=== PATIENT | female | born 1995 | race African-American/Black ===

== ENCOUNTER 2016-09-30 13:58 | Emergency (ER) | payer SELFPAY ==
[2016-09-30] MEDS ORDERED: DIPHENHYDRAMINE HCL 50 MG CAPSULE PO ONE (15:13)
[2016-09-30] MEDS ORDERED: PREDNISONE 20 MG TABLET PO ONE (15:13)
[2016-09-30] MEDS ORDERED: FAMOTIDINE 20 MG TABLET PO ONE (15:13)
--- NOTE | 2016-09-30 15:13 | ER Document Report ---
ED Allergic Reaction - General Chief Complaint: Allergic Reaction Stated Complaint: RASH/BODY PAIN, POSSIBLE ALLERGIC REACTION Time seen by provider: 15:08 Mode of Arrival: Ambulatory Information source: Patient Notes: 21-year-old female presents to ED for allergic reaction to medication she took at the doctor's office on Monday. She states she is unsure of exactly what she took. She states she was started on Flagyl for 5 days for the bacterial vaginosis. She states that she was being treated for bacterial vaginosis and then they called her in to take 2 pills for Chlamydia. She states she took these 2 days ago and her hands have been swelling for the last 2 days and she had hives to arms and legs. TRAVEL OUTSIDE OF THE [place] IN LAST 30 DAYS: No - HPI Onset: Other - 2 days Onset/Duration: Gradual Quality of pain: Other - Itching Severity: None Pain Level: Denies Skin rash / itching: Extremities, "Redness", "Hives" Swelling: Hands - Hands are swollen legs and arms have hives Associated symptoms: None Similar symptoms previously: No Recently seen / treated by doctor: Yes - Related Data Allergies/Adverse Reactions: azithromycin [From Zithromax] Allergy (Verified 09/30/16 15:22) Erythema Multiforme Past Medical History - General Information source: Patient - Social History Smoking Status: Never Smoker Cigarette use (# per day): No Chew tobacco use (# tins/day): No Smoking Education Provided: No Frequency of alcohol use: Occasional Drug Abuse: None Occupation: [employer] with: Alone Family History: Reviewed & Not Pertinent, CAD, CVA, DM, Hyperlipidemia, Hypertension, Malignancy, Thyroid Disfunction Patient has suicidal ideation: No Patient has homicidal ideation: No - Past Medical History Cardiac Medical History: Reports: None Pulmonary Medical History: Reports: None EENT Medical History: Reports: None Neurological Medical History: Reports: None Endocrine Medical History: Reports: None Renal/ Medical History: Reports: None Malignancy Medical History: Reports: None GI Medical History: Reports: None Musculoskeltal Medical History: 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, Reports Hx Musculoskeletal Deformity, Reports Hx Musculoskeletal Trauma Skin Medical History: Reports Hx Eczema Psychiatric Medical History: Reports: None Traumatic Medical History: Reports: Hx Fractures - fingers Past Surgical History: Reports: Hx Gynecologic Surgery - Implanon - Immunizations Immunizations up to date: Yes Hx Diphtheria, Pertussis, Tetanus Vaccination: No Review of Systems - Review of Systems Constitutional: No symptoms reported EENT: No symptoms reported Cardiovascular: No symptoms reported Respiratory: No symptoms reported Gastrointestinal: No symptoms reported Genitourinary: No symptoms reported Female Genitourinary: No symptoms reported Musculoskeletal: No symptoms reported Skin: Other - Swelling to hands hives to arms and legs Hematologic/Lymphatic: No symptoms reported Neurological/Psychological: No symptoms reported -: Yes All other systems reviewed and negative Physical Exam - Vital signs Vitals: Temp Pulse Resp BP Pulse Ox 98.5 F 110 H 16 122/76 100 09/30/16 14:10 09/30/16 14:10 09/30/16 14:10 09/30/16 14:10 09/30/16 14:10 Interpretation: Normal - General General appearance: Appears well, Alert - HEENT Head: Normocephalic, Atraumatic Eyes: Normal Pupils: PERRL - Respiratory Respiratory status: No respiratory distress Chest status: Nontender Breath sounds: Normal Chest palpation: Normal - Cardiovascular Rhythm: Regular Heart sounds: Normal auscultation Murmur: No - Abdominal Inspection: Normal Distension: No distension Bowel sounds: Normal Tenderness: Nontender Organomegaly: No organomegaly - Back Back: Normal, Nontender - Extremities General upper extremity: Nontender, Normal color, Normal ROM, Normal temperature General lower extremity: Nontender, Normal color, Normal ROM, Normal temperature , Normal weight bearing. No: Bernardo's sign Forearm: Other - Hives Hand: Swelling - Redness swelling hives Thigh: Other - Hives Calf: Other - Hives Ankle: Normal Foot: Normal - Neurological Neuro grossly intact: Yes Cognition: Normal Orientation: AAOx4 Frantz Coma Scale Eye Opening: Spontaneous Frantz Coma Scale Verbal: Oriented [place] Coma Scale Motor: Obeys Commands [place] Coma Scale Total: 15 Speech: Normal Motor strength normal: LUE, RUE, LLE, RLE Sensory: Normal - Psychological Associated symptoms: Normal affect, Normal mood - Skin Skin Temperature: Warm Skin Moisture: Dry Skin Color: Normal Location of irregularity: Extremities Character of irregularity: Erythematous, Urticarial Irregularity with: Swelling - Hands and feet Course - Re-evaluation Re-evalutation: 09/30/16 15:19 Patient was treated for bacterial vaginosis with Flagyl last week and he [facility] and got 2 large pills for Chlamydia. Within 2 days she started having swelling to her hands and feet and hives. I spoke with Dr. Juarez today and she stated yes she did get azithromycin and in these to be notated that she is allergic to azithromycin. We'll treat patient with prednisone and Pepcid and Benadryl and discharged home with a small prescription of prednisone. Patient to follow-up with her primary doctor. - Vital Signs Vital signs: Temp Pulse Resp BP Pulse Ox 98.5 F 110 H 16 122/76 100 09/30/16 14:10 09/30/16 14:10 09/30/16 14:10 09/30/16 14:10 09/30/16 14:10 Discharge - Discharge Clinical Impression: Allergic reaction caused by a drug Qualifiers: Encounter type: initial encounter Qualified Code(s): T78.40XA - Allergy, unspecified, initial encounter Condition: Stable Disposition: HOME, SELF-CARE Instructions: Family Physicians / Practices Additional Instructions: ACUTE ALLERGIC REACTION: Your symptoms are due to an allergic reaction. Allergy can cause hives, swelling of the hands, feet, and face, hoarseness, and difficulty swallowing or breathing. It may be due to exposure to medication, animal dander, foods, infection, or insect bites. Medication is a common cause, even when prior use of this same medication caused no problems. Acute treatment may include adrenalin and antihistamines. Usually, the specific allergic agent can't be identified unless repeated episodes occur. Home treatment includes the following: (1) Stop any suspicious medications. This will be discussed with you. (2) Oral antihistamines for the next four to five days. Example, diphenhydramine (Benadryl) every four hours. (3) You may also use cimetidine (Tagamet), ranitidine (Zantac), or famotidine ( Pepcid) every four hours if diphenhydramine is not controlling itching and hives. (4) Avoid aspirin until the hives completely disappear. (5) Avoid hot baths or showers until the hives are completely gone. Call the doctor if faintness, difficulty swallowing, tightness in the chest , or wheezing occurs. STEROID MEDICATION: You have been given a medicine of the cortisone/steroid class. This medication is used to control inflammation or allergy. It is usually only given for a short period of time, until the acute process subsides. There are usually no side effects from short-term use of cortisone-like medications. Some persons feel an increased sense of well-being and are not sleepy at bedtime. Long-term use of cortisone medications is best avoided, unless required for a severe condition. If your condition does not remit, or relapses after the course of corticosteroid medication, you should consult your physician. ACID-SUPPRESSING MEDICATION: You have a prescription for medicine which reduces the stomach's secretion of acid. Examples include Zantac, Tagament, and Pepcid. These drugs are often used to allow healing of ulcers or esophagitis. They may be needed to prevent recurrence of ulcers in some patients, or to prevent damage from acid reflux in the esophagus. Take all medication as prescribed, even after the pain is gone. Regular antacids may be added as needed if you have symptoms while taking this medicine. These medications sometimes are prescribed for allergic reactions because they have anti-histaminic effects and relieve the rash and itching of the reaction. There are usually no side effects from this medication. But, in rare cases and particularly in the elderly, serious problems can occur. Contact your doctor if there is fever, rash, hallucinations, confusion, or unusual bruising. Contact your doctor at once if you develop lightheadedness, black or bloody stool, or bloody vomitus. USE OF DIPHENHYDRAMINE: The use of diphenhydramine (Benadryl) has been recommended to control allergic symptoms. The 25 mg strength is available over- the-counter, as well as the elixir. This antihistamine is used for many symptoms. It's useful for itching, watering eyes and nose, allergic swelling, hives, and insect stings. The medication can be repeated four times daily. Age Elixir (12.5 mg/tsp) 25 mg pill 2-3 yr 1/2 tsp 4-8 yr 1 tsp 9-14 yr 2 tsp one tab adult 1-2 tabs Antihistamines may cause drowsiness, especially with the first dose. Do not operate machinery or drive while under the effects of the medication. Do not combine the medication with alcohol, or with any other medication without talking to your doctor. FOLLOW-UP CARE: If you have been referred to a physician for follow-up care, call the physician s office for an appointment as you were instructed or within the next two days. If you experience worsening or a significant change in your symptoms, notify the physician immediately or return to the Emergency Department at any time for re-evaluation. Prescriptions: Famotidine [Pepcid 20 mg Tablet] 20 mg PO BID #12 tablet Prednisone [Deltasone 20 mg Tablet] 3 tab PO DAILY 5 Days Forms: Return to Work
[2016-09-30 15:27] VITALS: BP 122/76
== END 2016-09-30 15:45 | disposition home or self-care (01) ==
LOC: ER 13:58
DX: L50.0 Allergic urticaria (principal); T36.3X5A Adverse effect of macrolides, initial encounter; M79.1 Myalgia; X58.XXXA Exposure to other specified factors, initial encounter; Z88.3 Allergy status to other anti-infective agents
CPT/HCPCS: 99283; J7512

== ENCOUNTER 2016-11-30 17:15 | Emergency (ER) | payer SELFPAY ==
--- NOTE | 2016-11-30 20:12 | ER Document Report ---
ED General - General TRAVEL OUTSIDE OF THE [place] IN LAST 30 DAYS: No - HPI Associated symptoms: Other - see above <LARA LOPEZ - Last Filed: 11/30/16 21:09> <JEB DECKER - Last Filed: 12/01/16 03:59> - General Chief Complaint: Headache Stated Complaint: CHEST PAINS,HEADACHE,NAUSEA Time Seen by Provider: 11/30/16 19:54 Notes: Patient is a 21 year old female who presents to to the ED with complaints of intermittent chest pressure and pain "for a while" that has now became constant. Patient states she has also had a severe headache for the past 2-3 days with associated blurred vision. Patient states she has a history of headaches but never this bad. Patient took Excedrin earlier. Patient denies any abdominal pain. Patient states she has not had adequate oral intake lately. No other concerns or complaints at this time. 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 denies: Abdominal pain Genitourinary: No symptoms reported Female Genitourinary: No symptoms reported Musculoskeletal: No symptoms reported Skin: No symptoms reported Hematologic/Lymphatic: No symptoms reported Neurological/Psychological: See HPI, Headaches <LARA LOPEZ - Last Filed: 11/30/16 21:09> Physical Exam - General General appearance: Appears well, Alert - HEENT Head: Normocephalic, Atraumatic Eyes: Normal Extraocular movements intact: Yes Pupils: PERRL - Respiratory Respiratory status: No respiratory distress Chest status: Tender - chest wall tenderness to palpation Breath sounds: Normal Chest palpation: Normal - Cardiovascular Rhythm: Regular Heart sounds: Normal auscultation Murmur: No - Abdominal Inspection: Normal Distension: No distension - Back Back: Normal - Extremities General upper extremity: Normal inspection, Normal ROM General lower extremity: Normal inspection, Normal ROM - Neurological Neuro grossly intact: Yes Cognition: Normal Orientation: AAOx4 Frantz Coma Scale Eye Opening: Spontaneous Frantz Coma Scale Verbal: Oriented [place] Coma Scale Motor: Obeys Commands [place] Coma Scale Total: 15 Speech: Normal - Psychological Associated symptoms: Normal affect, Normal mood - Skin Skin Temperature: Warm Skin Moisture: Dry Skin Color: Normal <LARA LOPEZ - Last Filed: 11/30/16 21:09> Course - Laboratory Result Diagrams: 11/30/16 20:40 11/30/16 20:40 <LARA LOPEZ - Last Filed: 11/30/16 21:09> - Laboratory Result Diagrams: 11/30/16 20:40 11/30/16 20:40 - Diagnostic Test Radiology reviewed: Reports reviewed - EKG Interpretation by Al EKG shows normal: Sinus rhythm Rate: Normal Rhythm: NSR <JEB DECKER - Last Filed: 12/01/16 03:59> - Re-evaluation Re-evalutation: 11/30/16 21:09 Patient rechecked. Patient states she is feeling a little better. (LARA LOPEZ) Patient is feeling better and would like to go home. No further headache. No further chest pain. No acute findings on blood work, EKG, chest x-ray. Patient is encouraged to stay hydrated at home. Understands and agrees with plan. Stable for discharge. (JEB DECKER) - Vital Signs Vital signs: Temp Pulse Resp BP Pulse Ox 98.5 F 77 18 117/65 99 11/30/16 22:54 11/30/16 22:54 11/30/16 22:54 11/30/16 22:54 11/30/16 22:54 Discharge <LARA LOPEZ - Last Filed: 11/30/16 21:09> <JEB DECKER - Last Filed: 12/01/16 03:59> - Discharge Clinical Impression: Chest wall pain Headache Qualifiers: Headache type: unspecified Headache chronicity pattern: acute headache Intractability: not intractable Qualified Code(s): R51 - Headache Condition: Stable Disposition: HOME, SELF-CARE Instructions: Headache ([facility]), Chest Wall Pain ([facility]), Family Physicians / Practices Prescriptions: Metoclopramide HCl [Reglan 10 mg Tablet] 1 tab PO TIDP PRN #25 tablet PRN Reason: Forms: Return to Work Scribe Attestation: 12/01/16 03:59 I personally performed the services described in the documentation, reviewed and edited the documentation which was dictated to the scribe in my presence, and it accurately records my words and actions. (JEB DECKER) Scribe Documentation - Scribe Written by Tierra:: tierra Saleh, [id number] acting as scribe for :: Tere <LARA LOPEZ - Last Filed: 11/30/16 21:09>
[2016-11-30] MEDS ORDERED: NORMAL SALINE 1000 ML 1,000 ML IV ONE (20:13)
[2016-11-30] MEDS ORDERED: ONDANSETRON HCL INJ/PF 4 MG/2 ML SDV IV ONE (20:13)
[2016-11-30] MEDS ORDERED: PROCHLORPERAZINE EDISYLATE INJ 10 MG/2 ML VIAL IV ONE (20:13)
[2016-11-30] MEDS ORDERED: DIPHENHYDRAMINE HCL 50 MG/ML VIAL IV ONE (20:14)
[2016-11-30 20:55] LABS: ABSOLUTE EOSINOPHILS # (AUTO) 0.1 10^3/uL (0.0-0.6); ABSOLUTE LYMPHOCYTES (AUTO) 1.9 10^3/uL (0.5-4.7); ABSOLUTE NEUT (AUTO) 6.2 10^3/uL (1.7-8.2); BASOPHILS % (AUTO) 0.2 % (0-2); EOSINOPHILS % (AUTO) 0.6 % (0-6); HEMATOCRIT 39.1 % (36.0-47.0); HEMOGLOBIN 12.6 g/dL (12.0-15.5); HGB HCT DIFFERENCE -1.3; LYMPHOCYTES % (AUTO) 21.1 % (13-45); MEAN CORPUSCULAR HEMOGLOBIN 29.3 pg (27.0-33.4); MEAN CORPUSCULAR HGB CONC 32.1 g/dL (32.0-36.0); MEAN CORPUSCULAR VOLUME 91 fl (80-97); MONOCYTES % (AUTO) 10.5 % (3-13); RED BLOOD COUNT 4.29 10^6/uL (3.72-5.28); RED CELL DISTRIBUTION WIDTH 12.5 % (11.5-14.0); SEGMENTED NEUTROPHILS % (AUTO) 67.6 % (42-78); WHITE BLOOD COUNT 9.1 10^3/uL (4.0-10.5)
--- NOTE | 2016-11-30 21:06 | RADIOLOGY REPORT (SQ) ---
EXAM DESCRIPTION: CHEST PA/LAT COMPLETED DATE/TIME: 11/30/2016 8:27 pm REASON FOR STUDY: CP COMPARISON: 01/21/2016 EXAM PARAMETERS: NUMBER OF VIEWS: two views TECHNIQUE: Digital Frontal and Lateral radiographic views of the chest acquired. RADIATION DOSE: NA LIMITATIONS: none FINDINGS: LUNGS AND PLEURA: No opacities, masses or pneumothorax. No pleural effusion. MEDIASTINUM AND HILAR STRUCTURES: No masses or contour abnormalities. HEART AND VASCULAR STRUCTURES: Heart normal size. No evidence for failure. BONES: No acute findings. HARDWARE: None in the chest. OTHER: No other significant finding. IMPRESSION: NO SIGNIFICANT RADIOGRAPHIC FINDING IN THE CHEST. TECHNICAL DOCUMENTATION: JOB ID: [id number] [employer]- All Rights Reserved
[2016-11-30 21:13] LABS: ANION GAP 11 (5-19); BLOOD UREA NITROGEN 11 mg/dL (7-20); CALCIUM 9.5 mg/dL (8.4-10.2); CARBON DIOXIDE 23 mmol/L (22-30); CHLORIDE 106 mmol/L (98-107); GLUCOSE 77 mg/dL (75-110); POTASSIUM 4.1 mmol/L (3.6-5.0); SODIUM 140.3 mmol/L (137-145)
[2016-11-30 22:55] VITALS: BP 117/65
--- NOTE | 2016-12-01 08:06 | EKG REPORT ---
SEVERITY:- NORMAL ECG - SINUS RHYTHM : Confirmed by: Brandyn Nova MD 01-Dec-2016 08:04:32
== END 2016-11-30 22:55 | disposition home or self-care (01) ==
LOC: ER 17:15
DX: R51 Headache (principal); R07.89 Other chest pain; R11.0 Nausea; Z88.3 Allergy status to other anti-infective agents
CPT/HCPCS: 93005; 99284; 96361; 96374; 96375; 36415; 84703; 85025; 80048; 71020; 93010; J1200; J0780; J2405; J7030

== ENCOUNTER 2018-03-13 11:18 | Emergency (ER) | payer SELFPAY ==
--- NOTE | 2018-03-13 11:42 | ER Document Report ---
ED Medical Screen (RME) - General Chief Complaint: Chest Pain Stated Complaint: CHEST PAINS, SHORTNESS OF BREATH, DIZZY Time Seen by Provider: 03/13/18 11:34 Mode of Arrival: Ambulatory Information source: Patient Notes: 23-year-old female presents emergency department with complaints of lightheadedness, chest pain, shortness of breath over the last 4 days. Patient states that the chest pain as a sharp and stabbing sensation located in the left chest. She denies any radiation of the pain. She denies any alleviating or exacerbating factors. She denies any fever, chills, rhinorrhea, sore throat , cough. Patient states that the pain is constant in nature. She states that she did drive down to [place] and back at the beginning of January. Patient states that she is also on control. She denies any history of DVT or PE, calf pain, calf swelling, history of recent malignancy, recent surgery. Patient does not smoke. She denies a history of hypertension, hyperlipidemia, diabetes, coronary artery disease. Patient states that she does have a family history of coronary artery disease. I have greeted and performed a rapid initial assessment of this patient. A comprehensive ED assessment and evaluation of the patient, analysis of test results and completion of the medical decision making process will be conducted by additional ED providers. PHYSICAL EXAMINATION: GENERAL: Well-appearing, well-nourished and in no acute distress. HEAD: Atraumatic, normocephalic. EYES: Pupils equal round extraocular movements intact, conjunctiva are normal. ENT: Nares patent NECK: Normal range of motion LUNGS: No respiratory distress Musculoskeletal: Normal range of motion NEUROLOGICAL: Normal speech, normal gait. PSYCH: Normal mood, normal affect. SKIN: Warm, Dry, normal turgor, no rashes or lesions noted. TRAVEL OUTSIDE OF THE [place] 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, Reports Hx Musculoskeletal Deformity, Reports Hx Musculoskeletal Trauma Skin Medical History: Reports Hx Eczema Traumatic Medical History: Reports: Hx Fractures - fingers Past Surgical History: Reports: Hx Gynecologic Surgery - Implanon - Immunizations Immunizations up to date: Yes Hx Diphtheria, Pertussis, Tetanus Vaccination: No Physical Exam - Vital signs Vitals: Temp Pulse Resp BP Pulse Ox 98.6 F 104 H 16 129/76 H 99 03/13/18 11:31 03/13/18 11:31 03/13/18 11:31 03/13/18 11:31 03/13/18 11:31 Course - Vital Signs Vital signs: Temp Pulse Resp BP Pulse Ox 98.6 F 104 H 16 129/76 H 99 03/13/18 11:31 03/13/18 11:31 03/13/18 11:31 03/13/18 11:31 03/13/18 11:31
--- NOTE | 2018-03-13 12:06 | ER Document Report ---
ED General - General Chief Complaint: Chest Pain Stated Complaint: CHEST PAINS, SHORTNESS OF BREATH, DIZZY Time Seen by Provider: 03/13/18 11:34 Mode of Arrival: Ambulatory Notes: Patient is a 23-year-old female that presents to the emergency department for chief complaint of chest pain and shortness of breath. Patient states she has been having on and off sharp left-sided chest pains for the past few months, but over the last few days has been more constant, nothing seems to make it better or worse. She has had some associated shortness of breath and lightheadedness but no syncopal episodes. She denies any worsening of the pain with exertion. She currently describes the pain as sharp, left-sided, and a 3 out of 10, but is painful to palpate over that area. She denies noting any recent fevers, chills, night sweats, cough, nausea, vomiting or abdominal pain. She does not believe that she is . Denies family history of early coronary disease. Denies having any leg swelling or calf pain. She does report she drove to [place] and back in the beginning of January, but the symptoms started before that. Past Medical History: Denies chronic medical conditions Past Surgical History: Denies surgical history Social History: Admits to rare alcohol use, denies tobacco or illicit drug use Family History: Reviewed and noncontributory for presenting illness Allergies: Reviewed, see documented allergy list. REVIEW OF SYSTEMS: Unless otherwise stated in this report the patient's positive and negative responses for review of systems for constitutional, eyes, ENT, cardiovascular, respiratory, gastrointestinal, neurological, genitourinary, musculoskeletal, and integumentary systems and related systems to the presenting problem are either as stated in the HPI or were not pertinent or were negative for the symptoms and/or complaints related to the presenting medical problem. PHYSICAL EXAMINATION: Vital signs reviewed, nursing noted reviewed. GENERAL: Well-appearing, well-nourished and in no acute distress. HEAD: Atraumatic, normocephalic. EYES: Eyes appear normal, extraocular movements intact, sclera anicteric, conjunctiva are normal. ENT: nares patent, oropharynx clear without exudates. Moist mucous membranes. NECK: Normal range of motion, supple without lymphadenopathy LUNGS: Breath sounds clear to auscultation bilaterally and equal. No wheezes rales or rhonchi. Mild left-sided reproducible chest wall tenderness to palpation HEART: Heart rate initially tachycardic, normal rhythm, no audible murmurs, on repeat evaluation, heart rate was normal. ABDOMEN: Soft, nontender, normoactive bowel sounds. No rebound, guarding, or rigidity. No masses appreciated. EXTREMITIES: Nontender, good range of motion, no pitting or edema. NEUROLOGICAL: No focal neurological deficits. Moves all extremities spontaneously Motor and sensory grossly intact on exam. PSYCH: Normal mood, normal affect. SKIN: Warm, Dry, normal turgor, no rashes or lesions noted on exposed skin TRAVEL OUTSIDE OF THE [place] IN LAST 30 DAYS: No - Related Data Allergies/Adverse Reactions: azithromycin [From Zithromax] Allergy (Verified 09/30/16 15:22) Erythema Multiforme Past Medical History - General Information source: Patient - Social History Smoking Status: Never Smoker Chew tobacco use (# tins/day): No Frequency of alcohol use: Occasional Drug Abuse: None Family History: Reviewed & Not Pertinent, CAD, CVA, DM, Hyperlipidemia, Hypertension, Malignancy, Thyroid Disfunction Patient has suicidal ideation: No Patient has homicidal ideation: No Renal/ Medical History: Denies: Hx Peritoneal Dialysis Musculoskeletal Medical History: 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, Reports Hx Musculoskeletal Deformity, Reports Hx Musculoskeletal Trauma Skin Medical History: Reports Hx Eczema Traumatic Medical History: Reports: Hx Fractures - fingers Past Surgical History: Reports: Hx Gynecologic Surgery - Implanon - Immunizations Immunizations up to date: Yes Hx Diphtheria, Pertussis, Tetanus Vaccination: No Physical Exam - Vital signs Vitals: Temp Pulse Resp BP Pulse Ox 98.6 F 104 H 16 129/76 H 99 03/13/18 11:31 03/13/18 11:31 03/13/18 11:31 03/13/18 11:31 03/13/18 11:31 Course - Re-evaluation Re-evalutation: Presentation of chest pain in an otherwise well appearing patient. Low clinical suspicion for ACS given clinical history, exam, EKG without ST elevations or depressions, and negative initial troponin. HEART score less than or equal to 3. PE also seems unlikely given clinical history, will obtain d-dimer, if positive will obtain CT imaging of the chest, if negative, patient will effectively be ruled out by clinical history, negative d-dimer, cannot use PERC criteria given tachycardia on presentation. CXR without evidence of pneumothorax or pneumonia. No widened mediastinum. Aortic dissection also seems unlikely given history, symmetric pulses, CXR, and vitals. HEART Score: History 0 ECG 0 Age 0 Risk Factors 0 Troponin 0 Total: 0 Chest pain in a patient without evidence of cardiac or other serious etiology on workup today. I discussed with patient that, based on their age, risk factors and emergency department testing today, the likelihood that their symptoms are related to a heart attack is very low (estimated risk of heart attack or over the next 30 days of less than 1%). The patient demonstrates decision making capacity and has verbalized an understanding of these risks to me. Based on this, the patient has chosen to follow-up as an outpatient. Usual chest pain return precautions reviewed. The patient states understanding and agreement with this plan. Patient's blood work was unremarkable, d-dimer negative, hCG negative, patient did receive GI cocktail, with some relief of her pain, etiology likely GI, versus costochondritis that she did have reproducible chest wall tenderness Advised the patient to follow-up with primary care physician, we will give her a prescription for Pepcid, patient agreeable to plan of care Laboratory 03/13/18 03/13/18 03/13/18 11:55 11:55 11:55 WBC 7.4 RBC 4.11 Hgb 12.2 Hct 36.7 MCV 89 MCH 29.7 MCHC 33.3 RDW 13.0 Plt Count 331 Seg Neutrophils % 76.1 Lymphocytes % 16.2 Monocytes % 7.1 Eosinophils % 0.3 Basophils % 0.3 Absolute Neutrophils 5.7 Absolute Lymphocytes 1.2 Absolute Monocytes 0.5 Absolute Eosinophils 0.0 Absolute Basophils 0.0 D-Dimer Sodium 140.1 Potassium 4.1 Chloride 105 Carbon Dioxide 25 Anion Gap 10 BUN 10 Creatinine 0.79 Est GFR ( Amer) > 60 Est GFR (Non-Af Amer) > 60 Glucose 103 Calcium 9.8 Total Bilirubin 0.9 Direct Bilirubin 0.2 Neonat Total Bilirubin Not Reportable Neonat Direct Bilirubin Not Reportable Neonat Indirect Bili Not Reportable AST 21 ALT 20 Alkaline Phosphatase 73 Troponin I < 0.012 Total Protein 7.4 Albumin 4.4 Urine Color Urine Appearance Urine pH Ur Specific [place] Urine Protein Urine Glucose (UA) Urine Ketones Urine Blood Urine Nitrite Urine Bilirubin Urine Urobilinogen Ur Leukocyte Esterase Urine WBC (Auto) Urine RBC (Auto) Urine Bacteria (Auto) Squamous Epi Cells Auto Urine Mucus (Auto) Urine Ascorbic Acid Urine HCG, Qual 03/13/18 03/13/18 11:55 12:31 WBC RBC Hgb Hct MCV MCH MCHC RDW Plt Count Seg Neutrophils % Lymphocytes % Monocytes % Eosinophils % Basophils % Absolute Neutrophils Absolute Lymphocytes Absolute Monocytes Absolute Eosinophils Absolute Basophils D-Dimer < 0.27 Sodium Potassium Chloride Carbon Dioxide Anion Gap BUN Creatinine Est GFR ( Amer) Est GFR (Non-Af Amer) Glucose Calcium Total Bilirubin Direct Bilirubin Neonat Total Bilirubin Neonat Direct Bilirubin Neonat Indirect Bili AST ALT Alkaline Phosphatase Troponin I Total Protein Albumin Urine Color YELLOW Urine Appearance SLIGHTLY-CLOUDY Urine pH 6.0 Ur Specific [place] 1.016 Urine Protein NEGATIVE Urine Glucose (UA) NEGATIVE Urine Ketones NEGATIVE Urine Blood NEGATIVE Urine Nitrite NEGATIVE Urine Bilirubin NEGATIVE Urine Urobilinogen 2.0 H Ur Leukocyte Esterase NEGATIVE Urine WBC (Auto) 0 Urine RBC (Auto) 1 Urine Bacteria (Auto) 1+ Squamous Epi Cells Auto 8 Urine Mucus (Auto) RARE Urine Ascorbic Acid NEGATIVE Urine HCG, Qual NEGATIVE Chest X-Ray 03/13/18 11:38 IMPRESSION: NO ACUTE RADIOGRAPHIC FINDING IN THE CHEST. - Vital Signs Vital signs: Temp Pulse Resp BP Pulse Ox 98.6 F 104 H 16 129/76 H 99 03/13/18 11:31 03/13/18 11:31 03/13/18 11:31 03/13/18 11:31 03/13/18 11:31 - Laboratory Result Diagrams: 03/13/18 11:55 03/13/18 11:55 Laboratory results interpreted by me: 03/13/18 11:55 Urine Urobilinogen 2.0 H - EKG Interpretation by Me Additional EKG results interpreted by me: EKG demonstrates sinus rhythm with a ventricular rate of 93 bpm, normal axis, normal intervals, there is no evidence of acute ischemia on this EKG. This is compared with prior EKG from 11/30/2016, without significant change. Discharge - Discharge Clinical Impression: Chest pain Qualifiers: Chest pain type: unspecified Qualified Code(s): R07.9 - Chest pain, unspecified Condition: Stable Disposition: HOME, SELF-CARE Instructions: Chest Wall Pain ([facility]), Chest Pain of Unclear Cause ([facility]), Antacid Therapy ([facility]) Additional Instructions: Please return to the emergency department if you have any worsening, or concern of your symptoms. Please return to the emergency department if you develop chest pain, difficulty breathing, severe abdominal pain, or ongoing vomiting. Please follow-up with your primary care physician in 2-3 days and any other recommended physicians. If prescribed, take all medications as directed. If you have any questions or concerns do not hesitate to return the emergency department for evaluation. Prescriptions: Famotidine [Pepcid 20 mg Tablet] 20 mg PO BID #30 tablet Referrals: REHANA BRYAN MD [ACTIVE STAFF] - Follow up in 3-5 days (GI)
[2018-03-13 12:22] LABS: ABSOLUTE LYMPHOCYTES (AUTO) 1.2 10^3/uL (0.5-4.7); ABSOLUTE MONOCYTES (AUTO) 0.5 10^3/uL (0.1-1.4); ABSOLUTE NEUT (AUTO) 5.7 10^3/uL (1.7-8.2); BASOPHILS % (AUTO) 0.3 % (0-2); EOSINOPHILS % (AUTO) 0.3 % (0-6); HEMATOCRIT 36.7 % (36.0-47.0); HEMOGLOBIN 12.2 g/dL (12.0-15.5); LYMPHOCYTES % (AUTO) 16.2 % (13-45); MEAN CORPUSCULAR HEMOGLOBIN 29.7 pg (27.0-33.4); MEAN CORPUSCULAR HGB CONC 33.3 g/dL (32.0-36.0); MEAN CORPUSCULAR VOLUME 89 fl (80-97); MONOCYTES % (AUTO) 7.1 % (3-13); PLATELET COUNT 331 10^3/uL (150-450); RED BLOOD COUNT 4.11 10^6/uL (3.72-5.28); SEGMENTED NEUTROPHILS % (AUTO) 76.1 % (42-78); TOTAL CELLS COUNTED % (AUTO) 100 %; WHITE BLOOD COUNT 7.4 10^3/uL (4.0-10.5)
[2018-03-13] MEDS ORDERED: MAG HYDROX/AL HYDROX/SIMETH SUSP 30 ML UDCUP PO ONE (12:27)
[2018-03-13] MEDS ORDERED: LIDOCAINE 2% VISCOUS SOLN 20 ML UDCUP PO ONE (12:27)
[2018-03-13] MEDS ORDERED: METOCLOPRAMIDE HCL ORAL SOLN 10 MG/10 ML UDCUP PO ONE (12:27)
[2018-03-13 12:32] LABS: APPEARANCE,URINE SLIGHTLY-CLOUDY; BILIRUBIN,URINE NEGATIVE (NEGATIVE); COLOR,URINE YELLOW; GLUCOSE, URINE NEGATIVE (NEGATIVE); KETONES,URINE NEGATIVE (NEGATIVE); LEUKOCYTE ESTERASE,URINE NEGATIVE (NEGATIVE); NITRITE,URINE NEGATIVE (NEGATIVE); PROTEIN,URINE NEGATIVE (NEGATIVE); URINE SPECIFIC GRAVITY 1.016
[2018-03-13 12:53] LABS: ALANINE AMINOTRANSFERASE 20 U/L (9-52); ALBUMIN 4.4 g/dL (3.5-5.0); ALKALINE PHOSPHATASE 73 U/L (38-126); ANION GAP 10 (5-19); ASPARTATE AMINO TRANSFERASE 21 U/L (14-36); BILIRUBIN,DIRECT 0.2 mg/dL (0.0-0.4); BILIRUBIN,TOTAL 0.9 mg/dL (0.2-1.3); BLOOD UREA NITROGEN 10 mg/dL (7-20); CALCIUM 9.8 mg/dL (8.4-10.2); CARBON DIOXIDE 25 mmol/L (22-30); CHLORIDE 105 mmol/L (98-107); GLUCOSE 103 mg/dL (75-110); POTASSIUM 4.1 mmol/L (3.6-5.0); SODIUM 140.1 mmol/L (137-145); TOTAL PROTEIN 7.4 g/dL (6.3-8.2)
--- NOTE | 2018-03-13 13:06 | EKG REPORT ---
SEVERITY:- NORMAL ECG - SINUS RHYTHM : Confirmed by: Brandyn Nova MD 13-Mar-2018 13:05:44
--- NOTE | 2018-03-13 13:10 | RADIOLOGY REPORT (SQ) ---
EXAM DESCRIPTION: CHEST SINGLE VIEW COMPLETED DATE/TIME: 03/13/2018 12:56 pm REASON FOR STUDY: chest pain COMPARISON: Two-view chest 04/13/2014, 01/21/2016, 11/30/2016 EXAM PARAMETERS: NUMBER OF VIEWS: One view. TECHNIQUE: Single frontal radiographic view of the chest acquired. RADIATION DOSE: NA LIMITATIONS: None. FINDINGS: LUNGS AND PLEURA: No opacities, masses or pneumothorax. No pleural effusion. MEDIASTINUM AND HILAR STRUCTURES: No masses. Contour normal. HEART AND VASCULAR STRUCTURES: Heart normal in size. Normal vasculature. BONES: No acute findings. HARDWARE: None in the chest. OTHER: No other significant finding. IMPRESSION: NO ACUTE RADIOGRAPHIC FINDING IN THE CHEST. TECHNICAL DOCUMENTATION: JOB ID: [id number] [employer]- All Rights Reserved Reading location - IP/workstation name: [email or web address]
[2018-03-13 14:46] VITALS: BP 106/72
== END 2018-03-13 14:51 | disposition home or self-care (01) ==
LOC: ER 11:18
DX: R07.9 Chest pain, unspecified (principal); R06.02 Shortness of breath; R42 Dizziness and giddiness; R00.0 Tachycardia, unspecified; Z88.1 Allergy status to other antibiotic agents; Z82.49 Family history of ischemic heart disease and other diseases of the circulatory system
CPT/HCPCS: 93005; 99285; 36415; 85025; 81025; 80053; 81001; 84484; 85379; 71045; 93010; J3490

== ENCOUNTER 2018-11-09 09:44 | Emergency (ER) | payer SELFPAY ==
[2018-11-09] MEDS ORDERED: KETOROLAC TROMETHAMINE INJ/PF 30 MG/1 ML SDV IV ONE (10:47)
[2018-11-09] MEDS ORDERED: PROCHLORPERAZINE EDISYLATE INJ 10 MG/2 ML VIAL IV ONE (10:47)
[2018-11-09] MEDS ORDERED: DIPHENHYDRAMINE HCL 50 MG/ML VIAL IV ONE (10:47)
[2018-11-09] MEDS ORDERED: NORMAL SALINE 1000 ML 1,000 ML IV ONE (10:47)
--- NOTE | 2018-11-09 11:47 | ER Document Report ---
Entered by CORBIN BOLTON SCRIBE 11/09/18 1042 Acting as scribe for:CRISTIAN ZAPIEN MD ED Headache - General Chief Complaint: Headache Stated Complaint: HEADACHE Time Seen by Provider: 11/09/18 10:36 Mode of Arrival: Ambulatory Information source: Patient Notes: 23-year-old female that presents to the emergency department today with complaints of a headache. Patient states that she has had headaches for most of her life but they are getting more frequent recently. Patient states her head hurts all over which is normal for her headaches. Patient states the headache sometimes keeps her from falling to sleep and sometimes wakes her up from sleep. Patient states she has tried tylenol and tylenol PM for her headache with mild relief. TRAVEL OUTSIDE OF THE [place] 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, Reports Hx Musculoskeletal Deformity, Reports Hx Musculoskeletal Trauma Traumatic Medical History: Reports: Hx Fractures - fingers Past Surgical History: Reports: Hx Gynecologic Surgery - Implanon - Immunizations Immunizations up to date: Yes Hx Diphtheria, Pertussis, Tetanus Vaccination: No Review of Systems - Review of Systems Constitutional: No symptoms reported EENT: No symptoms reported Cardiovascular: No symptoms reported Respiratory: No symptoms reported Gastrointestinal: No symptoms reported Genitourinary: No symptoms reported Female Genitourinary: No symptoms reported Musculoskeletal: No symptoms reported Skin: No symptoms reported Hematologic/Lymphatic: No symptoms reported Neurological/Psychological: See HPI, Headaches -: Yes All other systems reviewed and negative Physical Exam - Vital signs Vitals: Temp Pulse Resp BP Pulse Ox 98.3 F 101 H 16 131/77 H 97 11/09/18 09:50 11/09/18 09:50 11/09/18 09:50 11/09/18 09:50 11/09/18 09:50 - Notes Notes: Physical Exam: General: Alert, appears well. Sitting in dark room for comfort. HEENT: Normocephalic. Atraumatic. PERRLA. Extraocular movements intact. Oropharynx clear. All scalp musculature is tender with palpation. Neck: Supple. Posterior cervical musculature tenderness to palpation. Trapezius musculature tenderness to palpation. Respiratory: No respiratory distress. Abdominal: Normal Inspection. No distension. Extremities: Moves all four extremities. Neurological: Normal cognition. AAOx4. Normal speech. Psychological: Normal affect. Normal Mood. Skin: Warm. Dry. Normal color. Course - Re-evaluation Re-evalutation: 11/09/18 12:57 Headache has improved with medications. - Vital Signs Vital signs: Temp Pulse Resp BP Pulse Ox 97.7 F 77 16 143/80 H 97 11/09/18 10:40 11/09/18 10:40 11/09/18 10:40 11/09/18 10:40 11/09/18 10:40 Discharge - Discharge Clinical Impression: Muscle tension headache Condition: Stable Disposition: HOME, SELF-CARE Additional Instructions: Tension Headache Your problem has been diagnosed as muscle tension headache. This very common type of headache occurs because of tightness in the muscles of the head and neck. The cause may be neck or jaw joint problems, but most commonly the cause is emotional stress. The headache may last hours or days. The treatment of uncomplicated tension headaches is rest and pain medication. Often, the newer antiinflammatory pain medications are prescribed, as these also decrease the irritability of the painful tissues. Muscle relaxers, cold packs, or warm packs are sometimes helpful. Anti-anxiety medication or narcotics are sometimes needed temporarily, but are best avoided in the long run. Your doctor has evaluated your headache problem, and finds no evidence of a serious health problem as a cause for the headache. If your headache becomes more severe, or if new symptoms develop (such as fever, stiff neck, vomiting, or decreasing alertness) you should be re-examined by the physician. Take medications as prescribed. Get plenty of sleep and rest. Follow-up with a primary care provider to manage her headaches. RETURN TO THE EMERGENCY ROOM IF ANY NEW OR WORSENING SYMPTOMS. Prescriptions: Cyclobenzaprine HCl [Flexeril 5 mg Tablet] 5 mg PO TID PRN #15 tablet PRN Reason: Naproxen [Naprosyn 375 Mg Tablet] 500 mg PO BID #15 tablet Forms: Return to Work Scribe Attestation: 11/09/18 10:55 I personally performed the services described in the documentation, reviewed and edited the documentation which was dictated to the scribe in my presence, and it accurately records my words and actions. I personally performed the services described in the documentation, reviewed and edited the documentation which was dictated to the scribe in my presence, and it accurately records my words and actions.
[2018-11-09 13:25] VITALS: BP 117/84
== END 2018-11-09 13:23 | disposition home or self-care (01) ==
LOC: ER 09:44
DX: G44.209 Tension-type headache, unspecified, not intractable (principal)
CPT/HCPCS: 99283; 96361; 96374; 96375; J1200; J1885; J0780; J7030

== ENCOUNTER 2019-07-20 06:10 | Emergency (ER) | payer OTHER ==
[2019-07-20] MEDS ORDERED: ACETAMINOPHEN 325 MG TABLET PO ONE (08:39)
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
[2019-07-20] MEDS ORDERED: ONDANSETRON 4 MG TAB.RAPDIS PO ONE (09:52)
[2019-07-20] MEDS ORDERED: METRONIDAZOLE 500 MG TABLET PO ONE (10:04)
[2019-07-20] MEDS ORDERED: CEFTRIAXONE INJ 250 MG VIAL IM ONE (10:04)
[2019-07-20] MEDS ORDERED: LIDOCAINE 1% INJ-PF (10 MG/ML) 30 ML SDV INJ ONE (10:04)
[2019-07-20] MEDS ORDERED: AZITHROMYCIN 250 MG TABLET PO ONE (10:04)
[2019-07-20 10:38] LABS: BACTERIA (WET MOUNT) 3+ BACTERIA SEEN; EPITHELIALS (WET MOUNT) 3+ EPITHELIALS SEEN; T.VAGINALIS (WET MOUNT) COULD NOT PERFORM; WBCS (WET MOUNT) 1+ WBCS SEEN; YEAST (WET MOUNT) NO YEAST SEEN
[2019-07-20 10:51] LABS: ABSOLUTE LYMPHOCYTES (AUTO) 1.7 10^3/uL (0.5-4.7); ABSOLUTE MONOCYTES (AUTO) 0.8 10^3/uL (0.1-1.4); ABSOLUTE NEUT (AUTO) 9.9 10^3/uL (1.7-8.2); BASOPHILS % (AUTO) 0.3 % (0-2); EOSINOPHILS % (AUTO) 0.1 % (0-6); HEMATOCRIT 37.4 % (36.0-47.0); HEMOGLOBIN 12.4 g/dL (12.0-15.5); LYMPHOCYTES % (AUTO) 13.6 % (13-45); MEAN CORPUSCULAR HEMOGLOBIN 29.6 pg (27.0-33.4); MEAN CORPUSCULAR HGB CONC 33.2 g/dL (32.0-36.0); MEAN CORPUSCULAR VOLUME 89 fl (80-97); MONOCYTES % (AUTO) 6.5 % (3-13); PLATELET COUNT 310 10^3/uL (150-450); RED BLOOD COUNT 4.19 10^6/uL (3.72-5.28); RED CELL DISTRIBUTION WIDTH 12.9 % (11.5-14.0); SEGMENTED NEUTROPHILS % (AUTO) 79.5 % (42-78); TOTAL CELLS COUNTED % (AUTO) 100 %; WHITE BLOOD COUNT 12.4 10^3/uL (4.0-10.5)
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
[2019-07-20 11:07] LABS: ALBUMIN 4.7 g/dL (3.5-5.0); ALKALINE PHOSPHATASE 85 U/L (38-126); ANION GAP 14 (5-19); ASPARTATE AMINO TRANSFERASE 25 U/L (14-36); BILIRUBIN,DIRECT 0.3 mg/dL (0.0-0.4); BILIRUBIN,TOTAL 0.5 mg/dL (0.2-1.3); BLOOD UREA NITROGEN 10 mg/dL (7-20); CALCIUM 9.4 mg/dL (8.4-10.2); CARBON DIOXIDE 21 mmol/L (22-30); CHLORIDE 108 mmol/L (98-107); GLUCOSE 77 mg/dL (75-110); POTASSIUM 4.1 mmol/L (3.6-5.0); TOTAL PROTEIN 7.9 g/dL (6.3-8.2)
[2019-07-20 12:10] VITALS: BP 123/89
[2019-07-22 12:36] LABS: HEPATITS B SURFACE ANTIGEN Negative (Negative)
[2019-07-22 13:53] LABS: HEPATITIS C VIRUS ANTIBODY <0.1 s/co ratio (0.0-0.9)
== END 2019-07-20 12:09 | disposition home or self-care (01) ==
LOC: ER 06:10
DX: T74.21XA Adult sexual abuse, confirmed, initial encounter (principal); S01.412A Laceration without foreign body of left cheek and temporomandibular area, initial encounter; S40.211A Abrasion of right shoulder, initial encounter; R51 Headache; Y00.XXXA Assault by blunt object, initial encounter; Y93.89 Activity, other specified; Y92.59 Other trade areas as the place of occurrence of the external cause; Y07.59 Other non-family member, perpetrator of maltreatment and neglect; Z97.5 Presence of (intrauterine) contraceptive device; Z20.2 Contact with and (suspected) exposure to infections with a predominantly sexual mode of transmission
CPT/HCPCS: 99285; 96372; 36415; 87210; 84703; 85025; 86592; 80053; 86701; 80074; 70150; 70450; S0119; J3490; J0696